=== PATIENT | female | born 1985 | race Caucasian/White ===

== ENCOUNTER 2020-10-30 15:48 | Emergency (ER) | payer OTHER, SELFPAY ==
--- NOTE | ~2020-10-30 | XR_ITS ---
EXAMINATION: XR chest 2V EXAM DATE: 10/30/2020 16:08 INDICATION: Mid chest pain since Tuesday. TECHNIQUE: Frontal and lateral projections of the chest obtained and reviewed. There is no prior myrna dy for comparison. FINDINGS: The lungs are clear. There are no pleural effusions. The cardiomediastinal silhouette is within normal limits. There is no pneumothorax suspected. The bones and soft tissues are unremarkab le. IMPRESSION: No acute cardiopulmonary findings. Reviewed, dictated and finalized at location B.
--- NOTE | 2020-10-30 15:50 | ECG_ITS ---
Measurements Intervals [place] Rate: 86 P: 53 OK: 115 QRS: 19 QRSD: 72 T: 43 QT: 327 QTc: 393 Interpretive Statements SINUS RHYTHM WITH SHORT [place] INTERVAL BASELINE ARTIFACT- I, II, III, AVR, AVL, AVF, V1-V6 BORDERLINE ECG Electronically Signed On 10-30-2020 16:03:45 CDT by Grey Higginbotham D.O.
[2020-10-30 15:53] VITALS: BP 127/89; PULSE 89; RESP 18; TEMP 36.8; O2SAT 100
[2020-10-30 16:14] LABS: Basophils Absolute Auto 0.1 K/mm3 (0.0-0.1); Basophils Percent Auto 0.9 % (0.2-1.2); Eosinophils Absolute Auto 0.2 K/mm3 (0-0.3); Eosinophils Percent Auto 2.5 % (0-4.4); Hematocrit 45.3 % (37.0-47.0); Hemoglobin 15.3 g/dL (12.0-15.0); Immature Granulocyte Absolute 0.03 K/mm3 (0.00-0.031); Immature Granulocyte Percent A 0.4 % (0-0.5); Lymphocytes Absolute Auto 1.73 K/mm3 (0.9-3.2); Lymphocytes Percent Auto 21.4 % (18.3-44.2); Mean Corpuscular HGB Conc 33.8 g/dl (32-36); Mean Corpuscular Hemoglobin 31.3 pg (26-34); Mean Corpuscular Volume 92.6 fl (80-100); Mean Platelet Volume 9.6 fl (7.4-10.4); Monocytes Absolute Auto 0.5 K/mm3 (0.1-0.6); Monocytes Percent Auto 6.2 % (2.6-8.5); Neutrophils Absolute Auto 5.5 K/mm3 (1.3-6.7); Neutrophils Percent Auto 68.6 % (45.5-73.1); Platelet Count Result 310 k/mm3 (150-375); Red Blood Count 4.89 M/mm3 (4.2-5.4); Red Cell Distribution Width 12.3 % (11.5-14.5); White Blood Count 8.1 K/mm3 (4.5-10.0)
[2020-10-30 16:19] LABS: INR 0.9; Prothrombin Time 12.8 Seconds (11.1-14.7)
[2020-10-30 16:20] LABS: Partial Thromboplastin Time 26.8 SECONDS (22.3-36.8)
[2020-10-30 16:24] LABS: Anion Gap 9 mmol/L (8-16); Blood Urea Nitrogen 9 mg/dL (7-17); Carbon Dioxide 28 mmol/L (22-30); Chloride 105 mmol/L (98-107); Estimated CRCL calculation 83 ml/min; Estimated Glomerular Filt Rate > 60; Glucose 110 mg/dL (65-105); Sodium 142 mmol/L (137-145)
[2020-10-30] MEDS: BELLADONNA ALK/PHENOB ELIX 10 ML, MAG HYDROX/ALUMINUM HYD/SIMETH 30 ML, LIDOCAINE HCL 2... PO (16:25)
[2020-10-30 16:36] LABS: Troponin I < 0.012 ng/mL (0.000-0.034)
[2020-10-30 16:40] LABS: Alanine Aminotransferase 11 U/L (4-35); Albumin Level 5.1 g/dL (3.5-5.1); Alkaline Phosphatase 56 U/L (38-126); Aspartate Amino Transferase 37 U/L (14-36); Bilirubin,Total 0.5 mg/dL (0.2-1.3); Lipase 128 U/L (23-300)
--- NOTE | 2020-10-30 16:41 | ED.CHESTPAIN ---
HPI - Chest Pain General Chief Complaint: Chest Pain Stated Complaint: chest pain Time Seen by Provider: 10/30/20 16:02 Source: patient and RN notes reviewed Mode of arrival: ambulatory Limitations: no limitations History of Present Illness HPI narrative: This is a 35 year old female who presents for evaluation of midsternal nonradiating chest pain. She developed pain on Tuesday and she states it has been constant since then. She describes it as pressure and she is unsure of any exacerbating factors. She denies associated nausea, shortness of breath, fever, cough. She denies pain worse with eating or drinking. She states she thinks she occasionally notices she feels like she can't take a deep breath. She was evaluated at a hospital in [place], and she has come to ER today because she wanted to make sure nothing was missed. She states her pain symptoms are not worse. She has not tried anything for her pain. Pain 4/10. Related Data Home Medications Medication Instructions Recorded Confirmed omeprazole [Prilosec] 10 mg PO DAILY 10/30/20 10/30/20 Allergies Allergy/AdvReac Type Severity Reaction Status Date / Time Latex, Natural Rubber Allergy Rash Verified 10/30/20 15:58 Review of Systems Review of Systems: All systems reviewed & are unremarkable except as noted in HPI and below PMFSH Past Medical History Medical History (Updated 10/31/20 @ 00:00 by Background Daemon) Patient denies medical problems Surgical History Surgical History (Updated 10/30/20 @ 16:45 by Faina Phelps MD) H/O section Social History Social History (Updated 10/30/20 @ 16:45 by Faina Phelps MD) Smoking status: Never smoker Exam Narrative: Exam Narrative: GENERAL: Well-appearing, well-nourished, and in no acute distress. HEAD: Normocephalic, atraumatic EYES: PERRLA and EOMI, conjunctiva clear without discharge THROAT:Mucous membranes moist, Oropharynx normal without erythema, exudate, peritonsillar swelling or fluctuance NECK: Supple, without lymphadenopathy or mass RESPIRATORY: No respiratory distress, Airway patent, Respirations non-labored, Clear to auscultation without rales, rhonchi or wheeze HEART: Regular rate and rhythm. No murmur heard. Normal peripheral pulses. sternal tenderness present ABDOMEN: Soft, epigastric tenderness, nondistended, normal active bowel sounds. No masses. No rebound or guarding, No organomegaly. EXTREMITIES: No edema, normal strength with full range of motion. SKIN: Warm, dry, normal color without rash NEURO: Alert and oriented x3. CN 2-12 grossly intact. No focal deficits. PSYCH: Normal mood and affect. Course Reevaluation(s) Reevaluation #1: I reviewed with patient labs are unremarkable. She states she feels good after toradol injection. I discussed discharge plan and treatment of costochondritis. Date: 10/30/20 Time: 18:05 Vital Signs Vital signs: Vital Signs Temperature 98.2 F 10/30/20 15:53 Pulse Rate 89 10/30/20 15:53 Respiratory Rate 18 10/30/20 15:53 Blood Pressure 127/89 10/30/20 15:53 Pulse Oximetry 100 10/30/20 15:53 Temperature 98.2 F 10/30/20 15:53 Pulse Rate 66 10/30/20 18:10 Respiratory Rate 15 10/30/20 18:10 Blood Pressure 112/82 10/30/20 18:10 Pulse Oximetry 99 10/30/20 18:10 MDM - Chest Pain Lab Data Attestation: I reviewed the patient's lab results. Result diagrams: 10/30/20 16:00 10/30/20 16:00 Labs: Lab Results 10/30/20 10/30/20 10/30/20 Range/Units 16:00 16:00 16:00 WBC 8.1 (4.5-10.0) K/mm3 RBC 4.89 (4.2-5.4) M/mm3 Hgb 15.3 H (12.0-15.0) g/dL Hct 45.3 (37.0-47.0) % MCV 92.6 (80-100) fl MCH 31.3 (26-34) pg MCHC 33.8 (32-36) g/dl RDW 12.3 (11.5-14.5) % Plt Count 310 (150-375) k/mm3 MPV 9.6 (7.4-10.4) fl Immature Gran % (Auto) 0.4 (0-0.5) % Neut % (Auto) 68.6 (45.5-73.1) % Lymph % (Auto)
[2020-10-30 16:45] LABS: D Dimer 0.31 ug/mL (<0.48)
[2020-10-30] MEDS: KETOROLAC 30 MG/ML VIAL (*BKC) IV PUSH (17:31)
[2020-10-30 18:10] VITALS: BP 112/82; PULSE 66; RESP 15; O2SAT 99
== END 2020-10-30 18:19 | disposition home or self-care (01) ==
PROVIDERS: Emergency Medicine; Emergency Provider General Practice
DX: R07.89 Other chest pain (principal); R94.31 Abnormal electrocardiogram [ECG] [EKG]
CPT/HCPCS: 36415; 71046; 80048; 80076; 83690; 84484; 85025; 85380; 85610; 85730; 93005; 96374; 99284; A9270; J1885

== ENCOUNTER 2021-03-21 21:39 | Emergency (ER) | payer OTHER, SELFPAY ==
--- NOTE | 2021-03-21 22:07 | ED.SKABFB ---
HPI - Skin/Abscess/Foreign Bdy General Chief complaint: Skin/Abscess/Foreign Body Stated complaint: Mass on jaw Source: patient Mode of arrival: ambulatory Limitations: no limitations History of Present Illness HPI narrative: this is a 35-year-old female that was recently diagnosed with possible sinusitis and started on amoxicillin an area on her right posterior jaw has an area of erythema warmth tenderness with some swollen tender right submandibular gland with no fever chills there is no drainage to the site no nausea vomiting no shortness of breath. complaint: abscess/boil Onset (ago): day(s) Location: face Severity: moderate Severity scale (1-10): 6 Quality: aching Related Data Home Medications Medication Instructions Recorded Confirmed omeprazole [Prilosec] 10 mg PO DAILY 10/30/20 10/30/20 Allergies Allergy/AdvReac Type Severity Reaction Status Date / Time Latex, Natural Rubber Allergy Rash Verified 10/30/20 15:58 Review of Systems Review of Systems: All systems reviewed & are unremarkable except as noted in HPI and below PMFSH Past Medical History Medical History Patient denies medical problems Surgical History Surgical History H/O section Social History Social History Smoking status: Never smoker Exam Const: General: no acute distress and alert Orientation/consciousness: patient oriented x3 HENMT: Head: normal to inspection Eyes: Conjunctivae: conjunctivae normal Pupils: Equal, round and reactive pupils present Direct Ophthalmoscopy: no photophobia Neck: Neck: normal visual inspection and lymphadenopathy ( Tender right submandibular gland with palpation) Other: area of erythema right posterior jaw that is tender and warm to touch Chest: Chest palpation & inspection: normal inspection of the chest Resp: Effort & Inspection: normal respiratory effort Auscultation: clear to auscultation bilaterally Cardio: Rate: regular rate Rhythm: regular rhythm GI: GI Palp: Yes Soft to palpation Percussion: Yes normal to percussion : General: Yes no CVA tenderness Back/Spine/Pelvis: Back: no CVA tenderness Skin: General skin exam: normal color Rashes: no rashes Neuro: General: patient oriented x3 and moves all extremities Extrem: General: normal to inspection and no pedal edema Psych: Mental Status: mental status grossly normal Course Course Emergency Course: patient advised to discontinue amoxicillin, will start Augmentin 1st dose here in the ER and will give a dose of IM Toradol. Critical Care Time Critical Care Time Critical Care Time: No Discharge Plan Discharge Clinical Impression: Cellulitis Qualifiers: Site of cellulitis: face Qualified Code(s): L03.211 - Cellulitis of face Patient Disposition: Home, Self-Care Condition: Stable Instructions: Antibiotic Form, Cellulitis (ED) Additional Instructions: Take medicine as prescribed, discontinue amoxicillin, can take Aleve twice daily with meals for 5 days. Prescriptions: New amoxicillin-pot clavulanate [Augmentin] 875-125 mg tablet 1 tablet PO Q12H Qty: 20 RF: 0 tramadol [Ultram] 50 mg tablet 50 mg PO Q6H PRN (Reason: pain) Qty: 10 RF: 0 No Action omeprazole [Prilosec] 10 mg Capsule,Delayed Release(Dr/Ec) 10 mg PO DAILY RF: 0 Follow-up/Referrals: Terrance Olivia M.D. [Primary Care Provider] - Time of Disposition: 22:12
[2021-03-21 22:09] VITALS: BP 125/92; PULSE 77; RESP 20; TEMP 36.7; O2SAT 100
[2021-03-21] MEDS: KETOROLAC (*BKC) 60 MG/2 ML VIAL IM (22:15)
[2021-03-21] MEDS: AMOXICILLIN/CLAVULANATE K 875-125 MG TAB 1 TABLET PO (22:15)
[2021-03-21 22:28] VITALS: BP 122/75; PULSE 74; RESP 18; TEMP 36.6; O2SAT 100
== END 2021-03-21 22:34 | disposition home or self-care (01) ==
PROVIDERS: Emergency Provider Emergency Medicine; PCP Family Medicine
DX: L03.211 Cellulitis of face (principal)
CPT/HCPCS: 96372; 99283; A9270; J1885

== ENCOUNTER 2021-03-23 10:01 | Emergency (ER) | payer OTHER, SELFPAY ==
--- NOTE | ~2021-03-23 | CT_ITS ---
EXAMINATION: CT soft tissue neck w con DATE: 03/23/2021 13:05 INDICATION: Right facial swelling. Throat swelling. TECHNIQUE: Computed tomography (CT) of the neck was performed with 75 mL Omnipaque-350 intravenous co ntrast. Automated exposure control and iterative reconstruction technique were employed. The dose-west gth product was 395.52 mGy-cm. COMPARISON: None FINDINGS: There are no pathologically enlarged lymph nodes. The adenoids, palatine tonsils, lingual t onsils are normal. There is no sialolith. The mastoid air cells are normal. There is a carious lesion in the most posterior right maxillary molar. IMPRESSION: 1. Carious lesion in the most posterior right maxillary molar. Reviewed, dictated and finalized at location A. TRIMMER
[2021-03-23 10:33] VITALS: BP 140/83; PULSE 82; RESP 16; TEMP 36.5; O2SAT 100
[2021-03-23 12:28] LABS: Basophils Percent Auto 0.5 % (0.2-1.2); Eosinophils Absolute Auto 0.2 K/mm3 (0-0.3); Eosinophils Percent Auto 2.9 % (0-4.4); Hematocrit 41.2 % (37.0-47.0); Hemoglobin 14.1 g/dL (12.0-15.0); Immature Granulocyte Absolute 0.02 K/mm3 (0.00-0.031); Immature Granulocyte Percent A 0.3 % (0-0.5); Lymphocytes Absolute Auto 1.95 K/mm3 (0.9-3.2); Lymphocytes Percent Auto 25.9 % (18.3-44.2); Mean Corpuscular HGB Conc 34.2 g/dl (32-36); Mean Corpuscular Hemoglobin 32.3 pg (26-34); Mean Corpuscular Volume 94.3 fl (80-100); Mean Platelet Volume 9.4 fl (7.4-10.4); Monocytes Absolute Auto 0.5 K/mm3 (0.1-0.6); Neutrophils Absolute Auto 4.9 K/mm3 (1.3-6.7); Neutrophils Percent Auto 64.4 % (45.5-73.1); Platelet Count Result 273 k/mm3 (150-375); Red Blood Count 4.37 M/mm3 (4.2-5.4); Red Cell Distribution Width 12.7 % (11.5-14.5); White Blood Count 7.5 K/mm3 (4.5-10.0)
[2021-03-23 12:51] LABS: Alanine Aminotransferase 12 U/L (4-35); Albumin Level 4.7 g/dL (3.5-5.1); Alkaline Phosphatase 69 U/L (38-126); Anion Gap 9 mmol/L (8-16); Aspartate Amino Transferase 24 U/L (14-36); Bilirubin,Total 0.5 mg/dL (0.2-1.3); Blood Urea Nitrogen 8 mg/dL (7-17); Calcium 9.1 mg/dL (8.4-10.2); Carbon Dioxide 28 mmol/L (22-30); Chloride 103 mmol/L (98-107); Estimated CRCL calculation 83 ml/min; Estimated Glomerular Filt Rate > 60; Glucose 96 mg/dL (65-110); Lactic Acid Reflex 1.6 mmol/L (0.7-2.1); Potassium 3.8 mmol/L (3.4-5.0); Sodium 140 mmol/L (137-145)
[2021-03-23] MEDS: KETOROLAC 15 MG/ML VIAL (*BKC) IV PUSH (13:45)
--- NOTE | 2021-03-23 14:01 | ED.GENADULT ---
HPI - General Adult General Chief complaint: Skin/Abscess/Foreign Body <VIJI Lopez Last Filed: 03/23/21 14:12> Stated complaint: R JAW SWELLING <VIJI Lopez Last Filed: 03/23/21 14:12> Time Seen by Provider: 03/23/21 11:31 <VIJI Lopez Last Filed: 03/23/21 14:12> Source: patient <VIJI Lopez Last Filed: 03/23/21 14:12> Mode of arrival: ambulatory <VIJI Lopez Last Filed: 03/23/21 14:12> Limitations: no limitations <VIJI Lopez Last Filed: 03/23/21 14:12> History of Present Illness HPI narrative: Patient is 35-year-old female with chief complaint of swelling to her right lower jaw that has been present since . Patient states that she feels the swelling is increasing and moving closer to her throat. Patient reports that she was placed on amoxicillin and it was changed to Augmentin the following day. Patient reports that she has been on the Augmentin for 3 days and does not feel that her symptoms are improving.. She reports that she feels her symptoms are actually worsening. Patient reports some intermittent fevers. She reports a fever of 102 ?F patient denies issues swallowing. Patient denies any pain to her teeth or abscess. Patient reports that she was seen at the urgent care on and [facility] over the weekend. <VIJI Lopez Last Filed: 03/23/21 14:12> Related Data Home medications: Home Medications Medication Instructions Recorded Confirmed omeprazole [Prilosec] 10 mg PO DAILY 10/30/20 10/30/20 <VIJI Lopez Last Filed: 03/23/21 14:12> Allergies/adverse reactions: Allergies Allergy/AdvReac Type Severity Reaction Status Date / Time Latex, Natural Rubber Allergy Rash Verified 03/23/21 11:17 <VIJI Lopez Last Filed: 03/23/21 14:12> Review of Systems Review of Systems: CONSTITUTIONAL: Denies fever, chills, or sweats. EYES: Denies visual changes, redness, or discharge. ENT: Denies rhinorrhea, congestion, sore throat, or otalgia. CARDIOVASCULAR: Denies chest pain, palpitations, or edema. RESPIRATORY: Denies cough or dyspnea. GASTROINTESTINAL: Denies abdominal pain, nausea, vomiting, or diarrhea. GENITOURINARY: Denies dysuria or hematuria. SKIN: Denies rash or itching. MUSCULOSKELETAL: Reports right-sided facial swelling denies back pain, joint pain, or myalgia. NEUROLOGIC: Denies headache, numbness, dizziness, or weakness. PSYCHIATRIC: Denies anxiety or depression. <Kristen Carpenter PA-C - Last Filed: 03/23/21 14:12> [facility] Past Medical History Medical History: Medical History Patient denies medical problems <Kristen Carpenter PA-C - Last Filed: 03/23/21 14:12> Surgical History Surgical History: Surgical History H/O section <Kristen Carpenter PA-C - Last Filed: 03/23/21 14:12> Social History Social History: Social History Smoking status: Never smoker <Kristen Carpenter PA-C - Last Filed: 03/23/21 14:12> Exam Narrative: GENERAL: Well-appearing, well-nourished, and in no acute distress. HEAD: Normocephalic, atraumatic. EYES: PERRLA and EOMI. ENT: Nares clear, no rhinorrhea or epistaxis. Mucous membranes moist. Oropharynx without tonsillar hypertrophy exudate or other lesions. Bilateral TMs pearly villegas nonbulging. Swelling with erythema to lower with jaw. No abscess or erythema noted to gumline. NECK: Supple. No adenopathy or masses. Airway patent. CHEST: Clear to auscultation. No respiratory distress. No wheezes rales or rhonchi HEART: Regular rate and rhythm. No murmur heard. Normal peripheral pulses. EXTREMITIES: Normal range of motion. No edema. SKIN: Warm, dry, no rash. NEURO: No focal deficits. Alert and oriented x3. PSYCH: Normal mood
[2021-03-23 14:21] VITALS: BP 128/70; PULSE 76; RESP 17; O2SAT 100
== END 2021-03-23 14:23 | disposition home or self-care (01) ==
PROVIDERS: Physician Assistant; Emergency Provider General Practice; PCP Family Medicine
DX: K08.89 Other specified disorders of teeth and supporting structures (principal); R22.0 Localized swelling, mass and lump, head
CPT/HCPCS: 36415; 70491; 80053; 81025; 83605; 85025; 87040; 96374; 96375; 99284; J0131; J1885; Q9967

== ENCOUNTER 2021-03-24 17:34 | Emergency (ER) | payer OTHER, SELFPAY ==
[2021-03-24 17:42] VITALS: BP 118/80; PULSE 70; RESP 16; TEMP 37; O2SAT 100
--- NOTE | 2021-03-24 17:49 | ED.ALLEREA ---
HPI - Allergic Reaction General Chief complaint: Allergic Reaction Stated complaint: allergic reaction Time Seen by Provider: 03/24/21 17:49 Source: patient Mode of arrival: ambulatory Limitations: no limitations History of Present Illness HPI narrative: 35-year-old female with right lower 1st molar infection was started on amoxicillin. Subsequently she went to her dentist and was advised root canal therapy and started on clindamycin. She was started on clindamycin yesterday and today in the afternoon she developed generalized maculopapular rash / urticarial rash with itching. Nose sore throat or throat swelling. No hoarseness. No shortness of breath. She also has taken ibuprofen but has taken this medication multiple times in the past. MD complaint: allergic reaction Onset (ago): minute(s) Exposure: medication ( She was started on clindamycin yesterday) Symptoms: rash and itching Severity: moderate Treatment prior to arrival: none Previous Allergic Reaction History: none Related Data Home Medications Medication Instructions Recorded Confirmed omeprazole [Prilosec] 10 mg PO DAILY 10/30/20 03/24/21 Allergies Allergy/AdvReac Type Severity Reaction Status Date / Time Latex, Natural Rubber Allergy Rash Verified 03/23/21 11:17 clindamycin AdvReac Hives Verified 03/24/21 17:46 Review of Systems Review of Systems: All systems reviewed & are unremarkable except as noted in HPI and below Constitutional: Constitutional: Reports as per HPI and Reports no additional constitutional complaints Eyes: Eyes: Reports as per HPI and Reports no additional eye complaints ENT: Reports system reviewed and no additional complaints, except as documented Comments: right lower dental pain/ dental caries Cardiovascular: Cardiovascular: Reports as per HPI and Reports no additional cardiovascular complaints Respiratory: Respiratory: Reports as per HPI and Reports no additional respiratory complaints Gastrointestinal: Gastrointestinal: Reports as per HPI and Reports no additional gastrointestinal complaints Musculoskeletal: Musculoskeletal: Reports no additional musculoskeletal complaints Integumentary/Breasts: Skin/Breast: Reports pruritus and Reports rash Comments: generalized maculopapular rash with itching. Neurologic: Reports system reviewed and no additional complaints, except as documented Psychiatric: Psychiatric: Reports no additional psychiatric complaints Endocrine: Endocrine: Reports no additional endocrine complaints Hematologic/Lymphatic: Hematologic/Lymphatic: Reports no additional hematologic/lymphatic complaints Allergic/Immunologic: Allergic/Immunologic: Reports urticaria Comments: Generalized rash. [facility] Past Medical History Medical History Patient denies medical problems Surgical History Surgical History H/O section Social History Social History Smoking status: Never smoker Exam Const: General: cooperative, healthy appearing and anxious HENMT: Head: normal to inspection and No palpable skull fracture present Ears: hearing grossly normal bilaterally General nose exam: Normal external nose present Face and sinus: normal facial exam Mouth: Yes Normal oral and palatal mucosa present and Yes other ( right lower 1st molar appears carious) Throat: posterior oropharynx normal Eyes: General: appearance normal, both eyes and all related structures Eyelids: eyelids normal Conjunctivae: conjunctivae normal Sclera: sclerae normal Neck: Neck: normal visual inspection Chest: Chest palpation & inspection: normal inspection of the chest Resp: Effort & Inspection: normal respiratory effort and able to speak in complete sentences Auscultation: clear to auscultation bilaterally Cardio: Jugular venous distension: no JVD
[2021-03-24] MEDS: diphenhydrAMINE HCl CAP 25 MG CAPSULE 50 MG PO (18:15)
[2021-03-24] MEDS: methylPREDNISolone SOD SUCC 125 MG VIAL IM (18:15)
[2021-03-24 18:16] VITALS: BP 120/66; PULSE 72; RESP 18; TEMP 36.6; O2SAT 100
[2021-03-24] MEDS: FAMOTIDINE 20 MG TABLET PO (18:16)
== END 2021-03-24 18:18 | disposition home or self-care (01) ==
PROVIDERS: Emergency Provider Internal Medicine Critical Care Medicine; PCP Family Medicine
DX: R21 Rash and other nonspecific skin eruption (principal); T50.905A Adverse effect of unspecified drugs, medicaments and biological substances, initial encounter
CPT/HCPCS: 96372; 99283; A9270; J2930

== ENCOUNTER 2022-06-15 18:12 | Emergency (ER) | payer OTHER, SELFPAY ==
--- NOTE | ~2022-06-15 | CT_ITS ---
EXAMINATION: CT abdomen pelvis w con DATE: 06/15/2022 19:42 INDICATION: 3weeks postop fallopian tube resection, ABD pain TECHNIQUE: Computed tomography (CT) of the abdomen and pelvis was performed with 100 mL Omnipaque-350 intravenous contrast. Automated exposure control and iterative reconstruction technique were employe d. The dose-length product was 369.45 mGy-cm. COMPARISON: 01/23/2018. FINDINGS: Lower thorax: Unremarkable Liver: Normal. Biliary/Gallbladder: Gallbladder is normal. No bile duct dilation. Pancreas: No mass or duct dilation. Spleen: Normal. Adrenals:No mass. Kidneys: No mass, stone, or hydronephrosis. GI tract: Mild distal esophageal and gastric wall edema. No small or large bowel dilation. Normal danielle endix. Mesentery/Peritoneum: No ascites, mass, or free air. Retroperitoneum: No mass. Pelvis: Pelvic organs are within normal limits. Soft Tissues: Soft tissues and body wall unremarkable. Bones: No acute osseous finding. IMPRESSION: Mild esophagitis/gastritis. Otherwise, no acute abdominopelvic process detected. Reviewed, dictated and finalized at location K. [employer] IMPRESSION: Mild esophagitis/gastritis. Otherwise, no acute abdominopelvic process detected .
[2022-06-15 18:12] VITALS: BP 122/80; PULSE 78; RESP 16; TEMP 36.3; O2SAT 100
--- NOTE | 2022-06-15 18:38 | ED.ABDPAIN ---
HPI - Abdominal Pain General Chief Complaint: Abdominal Pain Stated Complaint: abdominal pain Time Seen by Provider: 06/15/22 18:13 Source: patient and RN notes reviewed Mode of arrival: ambulatory Limitations: no limitations History of Present Illness HPI narrative: patient states that she had a salpingectomy 3 weeks ago and has not had any difficulties until today when she had some lower abdominal pain mostly pelvic pain with which he feels like his bloating or distention of her pelvis. She has not been able to eat today because of nausea. She denies any vomiting diarrhea constipation. She denies any fever. MD elicited complaint: abdominal pain Onset (ago): day(s) (today) Pain Consistency: constant Location: pelvis Severity: moderate Quality: aching, fullness and dull Radiation: none Migration to: no migration Exacerbating factors: eating Relieving factors: nothing Associated symptoms: nausea and chills Related Data Allergies Allergy/AdvReac Type Severity Reaction Status Date / Time Latex, Natural Rubber Allergy Rash Verified 03/23/21 11:17 clindamycin AdvReac Hives Verified 03/24/21 17:46 Review of Systems Review of Systems: All systems reviewed & are unremarkable except as noted in HPI and below Constitutional: Constitutional: Reports chills Gastrointestinal: Gastrointestinal: Denies constipation, Denies diarrhea and Denies vomiting Genitourinary: Genitourinary: Reports as per HPI, Denies nocturia and Denies dysuria Musculoskeletal: Musculoskeletal: Denies myalgias PMFSH Past Medical History Medical History (Updated 06/15/22 @ 20:38 by Jaydon Wyatt MD) Patient denies medical problems Surgical History Surgical History (Updated 06/15/22 @ 18:43 by Jaydon Wyatt MD) H/O bilateral salpingectomy H/O section Social History Social History Smoking status: Never smoker Exam Const: General: healthy appearing, no acute distress and alert Nutritional Appearance: well nourished Orientation/consciousness: patient oriented x3 Limitations: no limitations Other: female nurse in room during examination. HENMT: Head: normal to inspection Ears: external ears normal Eyes: Conjunctivae: conjunctivae normal Pupils: Equal, round and reactive pupils present EOM: EOMs intact bilaterally Neck: Neck: normal visual inspection Resp: Effort & Inspection: normal respiratory effort Auscultation: clear to auscultation bilaterally Cardio: Rate: regular rate Rhythm: regular rhythm GI: Inspection: distended GI Palp: Yes Soft to palpation, Yes Tenderness to palpation present (GI) ( moderate in the pelvis), Yes Guarding due to palpation present (GI) ( mild) and No Rebound tenderness present Auscultation: Hypoactive bowel sounds present Back/Spine/Pelvis: Cervical Spine: cervical ROM normal Thoracic/Lumbar Spine: thoraco-lumbar ROM normal Skin: General skin exam: normal color Rashes: no rashes Neuro: General: patient oriented x3, moves all extremities, no focal motor deficits and CN's II-XI intact bilaterally Speech: normal speech Gait exam (Neuro): Normal gait present Extrem: General: normal to inspection and no clubbing, cyanosis or edema Psych: Mental Status: mental status grossly normal Affect: normal affect Attitude: cooperative Course Vital Signs Vital signs: Vital Signs Temperature 36.3 C L 06/15/22 18:12 Pulse Rate 78 06/15/22 18:12 Respiratory Rate 16 06/15/22 18:12 Blood Pressure 122/80 06/15/22 18:12 Pulse Oximetry 100 06/15/22 18:12 Oxygen Delivery Room Air 06/15/22 18:12 Temperature 36.7 C 06/15/22 20:43 Pulse Rate 69 06/15/22 20:43 Respiratory Rate 18 06/15/22 20:43 Blood Pressure 116/88 06/15/22 20:43 Pulse Oximetry 99 06/15/22 20:43 Oxygen Delivery Room Air 06/15/22 20:43 MDM - Abdominal Pain MDM Narrative Medical decision making narrative: I also consider
--- NOTE | 2022-06-15 18:46 | PC.NURSE ---
This RN at bedside for ERP exam as cake batter mixer
[2022-06-15 18:50] LABS: Basophils Absolute Auto 0.06 K/mm3 (0.00-0.10); Basophils Percent Auto 0.9 % (0.0-1.0); Eosinophils Absolute Auto 0.12 K/mm3 (0.02-0.50); Eosinophils Percent Auto 1.7 % (1.0-6.0); Hematocrit 39.3 % (35.0-49.0); Hemoglobin 13.8 g/dL (12.0-15.0); Immature Granulocyte Absolute 0.02 K/mm3 (0.00-0.00); Immature Granulocyte Percent A 0.3 % (0.0-0.0); Lymphocytes Absolute Auto 2.01 K/mm3 (1.10-4.50); Mean Corpuscular HGB Conc 35.1 g/dL (32.0-36.0); Mean Corpuscular Hemoglobin 32.2 pg (27.0-31.0); Mean Corpuscular Volume 91.8 fL (78.0-102.0); Mean Platelet Volume 9.8 fl (9.2-11.8); Monocytes Absolute Auto 0.52 K/mm3 (0.10-0.90); Monocytes Percent Auto 7.5 % (2.0-11.0); Neutrophils Absolute Auto 4.2 K/mm3 (1.7-7.2); Neutrophils Percent Auto 60.6 % (50.0-70.0); Platelet Count Result 292 K/mm3 (150-420); Red Blood Count 4.28 M/mm3 (4.20-5.40); Red Cell Distribution Width 12.4 % (11.6-14.4); White Blood Count 6.9 K/mm3 (4.8-10.8)
[2022-06-15 18:51] LABS: Add Urine Microscopic? YES; Appearance Urine Clear (Clear); Bilirubin Urine Negative (Negative); Blood Urine Negative (Negative); Color Urine Light Yellow (Yellow); Glucose Urine UA Negative (Negative); Ketones Urine Negative (Negative); Leukocyte Esterase Ur Trace LEU/UL (Negative); Nitrate Urine Negative (Negative); Protein Urine Negative (Negative); Urobilinogen Urine 0.2 mg/dL (0.2-1.0)
[2022-06-15 18:56] LABS: Bacteria Urine 1+ /hpf; RBC Urine 0-2 /hpf (0-2); Squamous Epithelial Cell Urine Few /hpf (Few); WBC Urine 0-3 /hpf (0-3)
--- NOTE | 2022-06-15 19:01 | PC.NURSE ---
Report given to WILLARD Beltre
[2022-06-15 19:07] VITALS: BP 120/86; PULSE 69; RESP 18; TEMP 36.9; O2SAT 99
[2022-06-15 19:09] LABS: Alanine Aminotransferase 12 U/L (14-59); Albumin Level 4.3 g/dL (3.4-5.0); Alkaline Phosphatase 59 U/L (46-116); Anion Gap 9 mmol/L (8-16); Aspartate Amino Transferase 13 U/L (15-37); Bilirubin Direct 0.1 mg/dL (0-0.2); Bilirubin,Total 0.4 mg/dL (0.00-1.00); Blood Urea Nitrogen 10 mg/dL (7-18); Carbon Dioxide 28 mmol/L (21-32); Chloride 103 mmol/L (98-108); Estimated CRCL calculation 90 ml/min; Estimated Glomerular Filt Rate > 60; Glucose 108 mg/dL (70-99); Lipase 57 U/L (16-77); Osmolality Calculated 290 mOsm/kg (285-295); Potassium 3.7 mmol/L (3.5-5.1); Sodium 140 mmol/L (136-145); Total Protein 7.8 g/dL (6.4-8.2)
[2022-06-15 19:14] LABS: Lactic Acid Reflex 0.7 mmol/L (0.4-2.0)
[2022-06-15 19:17] LABS: CRP < 0.5 mg/dL (0.0-0.9)
[2022-06-15] MEDS: MAG HYDROX/ALUMINUM HYD/SIMETH 30 ML, PHENobarb/HYOSCY/ATROPINE/SCOP 32.4 MG, LIDOCAINE... PO (20:18)
[2022-06-15] MEDS: PANTOPRAZOLE SODIUM IV 40 MG VIAL IV PUSH (20:18)
[2022-06-15 20:43] VITALS: BP 116/88; PULSE 69; RESP 18; TEMP 36.7; O2SAT 99
== END 2022-06-15 20:44 | disposition home or self-care (01) ==
PROVIDERS: Emergency Provider Emergency Medicine; PCP Family Medicine
DX: K29.00 Acute gastritis without bleeding (principal)
CPT/HCPCS: 36415; 74177; 80053; 81001; 82248; 83605; 83690; 85025; 86140; 96374; 99284; A9270; C9113; Q9967